=== PATIENT | female | born 2005 | race African-American/Black ===

== ENCOUNTER 2024-11-24 21:35 | Emergency (ER) | payer OTHER ==
[~2024-11-24] VITALS: Ht 165.1 cm; Wt 90.0 kg
[2024-11-24 22:03] VITALS: O2SAT 98
[2024-11-24 22:39] LABS: CLARITY URINE CLEAR (CLEAR); COLOR URINE YELLOW (YELLOW); GLUCOSE URINE NEGATIVE (NEGATIVE); KETONES URINE TRACE (NEGATIVE); LEUKOCYTE ESTERASE URINE TRACE (NEGATIVE); NITRITE URINE NEGATIVE (NEGATIVE); OCCULT BLOOD URINE NEGATIVE (NEGATIVE); PH URINE 6.5 (4.5-8.0); PROTEIN URINE NEGATIVE (NEGATIVE); SPECIFIC GRAVITY URINE 1.027 (1.005-1.030); UROBILINOGEN URINE 1.0 E.U./dL (0.2-1.0)
[2024-11-24 22:50] LABS: BACTERIA URINE NONE SEEN; RBC URINE NONE SEEN /hpf (0-2); SQUAMOUS EPITHELIAL CELL URINE FEW /lpf (RARE/1+); WBC URINE 0-2 /hpf (0-2)
[2024-11-24 23:12] LABS: BASOPHILS % 0.4 % (0.0-2.0); EOSINOPHILS % 1.2 % (0.0-5.0); HEMATOCRIT. 40.5 % (36.0-48.0); HEMOGLOBIN. 13.9 g/dL (12.0-16.0); LYMPHOCYTES % 16.1 % (20.0-50.0); MEAN PLATELET VOLUME 6.9 fl (7.4-10.4); MONOCYTES % 5.7 % (2.0-8.0); NEUTROPHILS % 76.6 % (40.0-76.0); PLATELET 339 x1000/uL (130-400); RED BLOOD CELL COUNT 4.25 mill/uL (4.2-5.4); RED CELL DISTRIBUTION WIDTH 14.2 % (11.6-14.6)
[2024-11-24 23:26] LABS: CREATININE 0.7 mg/dL (0.6-1.0)
[2024-11-24 23:27] LABS: ASPARTATE AMINOTRANSFERASE 15 IU/L (<34); UREA NITROGEN BLOOD 6 mg/dL (9-23)
[2024-11-24 23:28] LABS: BILIRUBIN DIRECT 0.2 mg/dL (<=3.0); BILIRUBIN TOTAL 0.5 mg/dL (0.1-1.0)
[2024-11-24 23:29] LABS: PROTEIN TOTAL 6.8 g/dL (6.0-8.3)
[2024-11-24] MEDS ORDERED: AZIT250T12 MT (23:40)
[2024-11-24] MEDS ORDERED: ALBU18HF2 IH (23:40)
[2024-11-24] MEDS ORDERED: BENZ100C86 MT (23:40)
[2024-11-24 23:57] VITALS: BP 125/80; PULSE 93; RESP 19; TEMP 37; O2SAT 98
== END 2024-11-24 23:59 | disposition home or self-care (01) ==
LOC: ER 21:35
DX: J06.9 Acute upper respiratory infection, unspecified (principal); Z79.899 Other long term (current) drug therapy; Z90.89 Acquired absence of other organs; Z98.890 Other specified postprocedural states
CPT/HCPCS: 36415; 71045; 80048; 80076; 81003; 81025; 85025; 99284